=== PATIENT | male | born 1995 | race Caucasian/White ===

== ENCOUNTER 2017-11-17 13:27 | Emergency (ER) | payer OTHER ==
[~2017-11-17] VITALS: Ht 175.3 cm; Wt 66.7 kg
[2017-11-17 13:37] VITALS: Ht 175.3 cm; Wt 66.7 kg
[2017-11-17 14:32] VITALS: BP 135/94
== END 2017-11-17 14:33 | disposition other institution (70) ==
LOC: ED 13:27
DX: Z02.89 Encounter for other administrative examinations (principal); L70.0 Acne vulgaris; F17.210 Nicotine dependence, cigarettes, uncomplicated
CPT/HCPCS: 99406